=== PATIENT | male | born 1995 | race African-American/Black ===

== ENCOUNTER 2020-06-24 15:15 | Emergency (ER) | payer OTHER ==
[~2020-06-24] VITALS: Ht 170.2 cm; Wt 68.0 kg
[2020-06-24] MEDS ORDERED: ACETAMINOPHEN WITH CODEINE 300/30MG TABLET PO STA (15:37)
[2020-06-24 16:28] VITALS: BP 126/82
== END 2020-06-24 19:13 | disposition home or self-care (01) ==
LOC: ER 15:15
DX: S00.83XA Contusion of other part of head, initial encounter (principal); R03.0 Elevated blood-pressure reading, without diagnosis of hypertension; V49.9XXA Car occupant (driver) (passenger) injured in unspecified traffic accident, initial encounter; Y93.89 Activity, other specified; Y92.488 Other paved roadways as the place of occurrence of the external cause
CPT/HCPCS: 99284